=== PATIENT | male | born 1965 | race Caucasian/White ===

== ENCOUNTER 2023-01-18 10:00 | Day surgery (SDC) | payer OTHER, BC, SELFPAY ==
[2023-01-18 10:16] VITALS: BP 117/84; PULSE 78; RESP 18; TEMP 36.2; O2SAT 100; BMI 29.8
[2023-01-18] MEDS: LACTATED RINGER'S SOLUTION 1,000 ML 50 ML IV (10:23)
--- NOTE | 2023-01-18 11:44 | OP_ITS ---
OPERATION DATE: ??01/18/2023 PREOPERATIVE DIAGNOSIS:? Colorectal screening. POSTOPERATIVE DIAGNOSIS:? A 2 mm sigmoid polyp. PROCEDURE:? Colonoscopy to cecum with cold forceps polypectomy x1. SURGEON:? Jay Robison M.D. ANESTHESIA:? Monitored anesthesia care. ESTIMATED BLOOD LOSS:? Less than 1 mL. INDICATIONS AND CONSENT:? Patient is a 57-year-old male, presents for colorectal screening.? Indications, risks, benefits, alternatives of proceeding with colonoscopy were explained extensively to the patient, including the risks of bleeding, colon perforation or anesthetic complications.? All of his questions were answered.? Informed consent was obtained. PROCEDURE:? Patient brought to the operating room, placed in the left lateral decubitus position.? Monitored anesthesia care was provided.? Rectal exam was performed which showed no masses or blood.? The scope was inserted into the anal canal.? Under direct visualization was advanced.? With the aid of abdominal compression, it was advanced to the cecum where cecal markings were clearly identified.? There was noted to be a good prep.? Upon withdrawal of the scope, mucosal surfaces were carefully examined.? There were no mass lesions or inflammatory changes.? No significant diverticulosis.? Within the sigmoid colon, there was noted to be a 2 mm sessile polyp that was removed with cold biopsy forceps with good hemostasis.? Scope was retroflexed in the anal canal.? There was no significant hemorrhoidal disease.? Scope was then withdrawn.? Patient tolerated procedure well, was sent to recovery room in good condition. Follow up colonoscopy likely will be in five years, but will depend on the pathology results. CC:? Patient?s family physician. MELANIE
[2023-01-18 11:54] VITALS: BP 98/73; PULSE 80; RESP 18; O2SAT 98
[2023-01-18 12:00] VITALS: BP 124/91; PULSE 82; RESP 16; O2SAT 98
[2023-01-18 12:15] VITALS: BP 127/74; PULSE 82; RESP 18; O2SAT 100
== END 2023-01-18 12:20 | disposition home or self-care (01) ==
PROVIDERS: PCP Family Medicine; Visit Provider Surgery
PROC: (CPT 45380; principal; 2023-01-18 11:10)
DX: Z12.11 Encounter for screening for malignant neoplasm of colon (principal); K63.5 Polyp of colon; G47.30 Sleep apnea, unspecified; Z87.891 Personal history of nicotine dependence
CPT/HCPCS: 45380; 36415; 88305; J2704